=== PATIENT | male | born 1975 | race Caucasian/White ===

== ENCOUNTER 2024-03-26 19:43 | Emergency (ER) | payer OTHER ==
[2024-03-26] MEDS ORDERED: Sodium Chloride 0.9% 10 ML Syringe FLUSH PRN (20:06)
[2024-03-26 20:33] LABS: BASOPHILS PERCENT AUTO 0.8 % (0.3-3.8); EOSINOPHILS ABSOLUTE AUTO 0.2 x10-3/uL (0.0-0.6); EOSINOPHILS PERCENT AUTO 3.2 % (0.1-6.8); HEMATOCRIT 41.3 % (38.3-50.1); HEMOGLOBIN 14.2 g/dL (12.9-17.7); LYMPHOCYTES ABSOLUTE AUTO 2.2 x10-3/uL (0.5-4.5); LYMPHOCYTES PERCENT AUTO 37.3 % (15.8-45.3); MEAN CORPUSCULAR HEMOGLOBIN 28.9 pg (27.0-33.3); MEAN CORPUSCULAR HGB CONC 34.2 g/dL (28.7-35.3); MEAN CORPUSCULAR VOLUME 84.6 fL (80.8-98.7); MEAN PLATELET VOLUME 7.7 fL (6.7-11.0); MONOCYTES ABSOLUTE AUTO 0.5 x10-3/uL (0.0-1.2); MONOCYTES PERCENT AUTO 8.1 % (5.5-15.2); NEUTROPHILS ABSOLUTE AUTO 3.1 x10-3/uL (1.7-6.9); NEUTROPHILS PERCENT AUTO 50.6 % (40.3-71.8); PLATELET COUNT,PLT 242 x10(3)uL (117-477); RED BLOOD CELL COUNT 4.89 x10(6)uL (3.90-5.90)
[2024-03-26 20:34] LABS: BLOOD UREA NITROGEN,BUN 10 mg/dL (7-18); BUN/CREATININE RATIO 9.1 (9-20); CALCIUM 8.5 mg/dL (8.6-10.2); CARBON DIOXIDE,CO2 29 mmol/L (21-32); CHLORIDE,CL 104 mmol/L (100-110); CREATININE 1.1 mg/dL (0.70-1.30); ESTIMATED GFR 83 mL/min (>60); GLUCOSE RANDOM 117 mg/dL (80-116); POTASSIUM,K 3.2 mmol/L (3.5-5.3); SODIUM,NA 143 mmol/L (135-145)
[2024-03-26 20:39] LABS: INR 0.98 (1.00-1.24); PROTHROMBIN TIME 10.2 sec (9.0-11.1)
[2024-03-26 20:40] LABS: A/G RATIO 1.2; ALANINE AMINOTRANSFERASE,ALT 25 U/L (12-36); ALBUMIN 4.1 g/dL (3.5-5.2); ALKALINE PHOSPHATASE 50 IU/L (56-112); ASPARTATE AMNIOTRANSFERASE,AST 12 IU/L (5-25); PROTEIN TOTAL,TP 7.6 g/dL (6.0-8.0)
[2024-03-26 20:41] LABS: PTT,PARTIAL THROMBOPLSTIN TIME 24.2 SECONDS (24.4-33.2)
[2024-03-26] MEDS: Iopamidol 755 Mg/ML 100 ML Bottle IV SCH (21:06)
== END 2024-03-26 23:50 ==
LOC: FB.ED 19:43
DX: I63.9 Cerebral infarction, unspecified (principal); E87.6 Hypokalemia
CPT/HCPCS: 36415; 70496; 71045; 80053; 82947; 84484; 85025; 85610; 85730; 93005; 93010; 99285; Q9967